=== PATIENT | male | born 2005 | race Caucasian/White ===

== ENCOUNTER 2025-01-10 07:14 | Emergency (ER) | payer MEDICAID ==
[~2025-01-10] VITALS: Ht 175.3 cm; Wt 79.3 kg
[2025-01-10 07:20] VITALS: BP 148/85; PULSE 84; RESP 16; TEMP 98; O2SAT 98
--- NOTE | 2025-01-10 08:07 | RADIOLOGY REPORT ---
EXAM: DI TOE(S) CLINICAL INDICATION: TOE PAIN TECHNIQUE: DI TOE(S) Comparison: None FINDINGS/IMPRESSION: Avulsion fracture non displaced fourth middle phalanx.
--- NOTE | 2025-01-10 09:04 | Physician Documentation ---
History of Present Illness ~ Chief Complaint: Toe pain Stated Complaint: TOE PAIN Time Seen by MD: 08:46 OK to notify your PCP?: Yes Source: patient, RN/MD, RN notes reviewed Mode of Arrival: POV Exam Limitations: no limitations HPI 19 year old male presents to the emergency department for complaints of toe pain that began yesterday. He states that he had stubbed his right foot and is now experiencing pain in his pinky toe. He states that he had hit his foot on the main door to his house while wearing uncomfortable shoes. Patient denies any other associated symptoms at this time. Patient denies any other alleviating or exacerbating factors. Tetanus witin 5 years: Yes Medication Reconciliation Allergies: Coded Allergies: No Known Allergies (Unverified , 01/10/25) Past Medical History Past Medical History: No Pertinent History Past Surgical History: no surgical history Smoking Status: Never smoker Alcohol Use: None Drug Use: none Lives with: Mother Review of Systems All Other Systems at this time: Reviewed and Negative ROS As stated above in the HPI, otherwise all systems are reviewed and negative. Physical Exam Vital Signs: RN Vital Signs have been reviewed: Yes, Temperature: 98.0, Source: Temporal, Heart Rate: 84, Respiratory Rate: 16, BP: 148/85, Pulse Oximetry: 98, Weight: 79.300 Oxygen Flow Rate: 0 Pulse Oximetry Reflects: adequate oxygenation Physical Exam General: The patient is well developed, well nourished, nontoxic appearing and is in no acute distress. Skin: [place], warm and dry with no rashes. HEENT: Head was normocephalic and atraumatic. Eyes - pupils equal, round, reactive to light and accommodation. Extraocular movements were intact. Conjunctivae were nonicteric. Ears - bilateral tympanic membranes were normal. The mouth and oropharynx were clear with moist mucous membranes. There were no pharyngeal exudates or erythema. Neck: Supple and nontender. There was no jugular venous distention, lymphadenopathy, thyromegaly or masses. Chest: Clear to auscultation bilaterally without wheezes, rales or rhonchi. No accessory muscle use. No dullness to percussion. Heart: Rate regular and rhythmic. S1, S2. No murmurs. Palpation of the chest wall was normal. No rubs or thrills. Abdomen: Soft, nontender and nondistended. Positive bowel sounds. No guarding or rebound. No hepatosplenomegaly or palpable masses. Extremities: Swelling, redness, and ecchymosis to the right foot. No cyanosis, clubbing or edema. The patient moves all extremities. Pulses were equal and symmetric. Neurologic: Cranial nerves II-XII were intact. Sensation was intact to light touch throughout. Motor strength was 5/5 in all four extremities. Deep tendon reflexes were intact in both upper and lower extremities. Psychologic: The patient was oriented to person, place and time. The patient demonstrated appropriate judgement and insight. Procedures Splinting Location: right foot Pre-Proc Neuro Vasc Exam: normal Post-Proc Neuro Vasc Exam: normal Splint Placed By: Nurse Tolerated Procedure Well?: yes, no complications Procedure Note Patient was given an ortho shoe and crutches for the fracture to his right foot. Progress Results/Orders Reviewed/noted all lab results: Yes Results/Orders Orders - DANIEL CAPELLAN MD Toe(S) (01/10/25 07:23) Ortho Orders (01/10/25 09:08) Completed Orders - DANIEL CAPELLAN MD Toe(S) (01/10/25 07:23) Naproxen Tablet (Naprosyn Tablet) (01/10/25 09:20) Medications Received in ER Medications (Trade) Dose Ordered Sig/Aura Route PRN Reason Start Time Stop Time Status Last Admin Dose Admin (Naprosyn tablet) 500 mg ONCE ONCE PO 01/10/25 09:20 01/10/25 09:21 DC 01/10/25 09:48 500 MG Vital Signs 01/10/25 07:20 Temp 98.0 Pulse 84 Resp 16 B/P (MAP) 148/85 Pulse Ox 98 O2 Flow Rate 0 Re-Evaluation Re-Evaluation : Re-Evaluation: Improved Progress Patient was seen and examined. Patient was given reassurance. The patient was reported to have an avulsion fracture he is tender at the MP joint. I did not see an obvious avulsion fracture but treated the patient for one. Orthopedic shoe was provided crutches pain medications and follow up with Orthopedic ele murillo. Otherwise patient appears well. This was a mechanical injury. EKG/XRAY/CT/US/VASC/MRI Bone/Soft Tissue X-Ray (Ext.) : Additional Comment EXAM: DI TOE(S) CLINICAL INDICATION: TOE PAIN TECHNIQUE: DI TOE(S) Comparison: None FINDINGS/IMPRESSION: Avulsion fracture non displaced fourth middle phalanx. Electronically Signed by:MAURY RILEY MD Date & Time: 01/10/25803 Dictated by: MAURY RILEY MD Dictation date and time: 01/10/25803 Medical Decision Making Additional info obtained from: old records Toe Diff Dx:Considerations: Include: Abrasion, Contusion, Dislocation, Fractu re, Hematoma, Laceration, Neurovascular injury, Other Departure Time of Disposition: 09:18 Disposition: 01 HOME / SELF CARE / HOMELESS Impression: Primary Impression: Avulsion fracture of great toe Condition: Stable Discharge Instructions: Toe Fracture, [id number] Referrals: NO PRIMARY CARE PROVIDER (PCP) RUPERT FISHER MD Education Educated: Patient, Family Educated regarding: diagnosis, treatment, prognosis, need for follow up Signature Scribe Signature: Scribed for Daniel Capellan MD by Lauren Murrieta . 01/10/25 09:29 Attestation: The note accurately reflects work and decisions made by me.Daniel Capellan MD 01/10/25 09:04 DANIEL CAPELLAN MD January 10, 2025 09:04 LAUREN MORALES January 10, 2025 09:13
[2025-01-10] MEDS: naproxen 500mg tablet PO ONE (09:48)
== END 2025-01-10 09:57 | disposition home or self-care (01) ==
LOC: ER 07:16
DX: S92.491A Other fracture of right great toe, initial encounter for closed fracture (principal); W22.09XA Striking against other stationary object, initial encounter; Y93.89 Activity, other specified; Y92.89 Other specified places as the place of occurrence of the external cause; Y99.8 Other external cause status
CPT/HCPCS: 73660; 99283